=== PATIENT | male | born 1995 | race Caucasian/White ===

== ENCOUNTER 2020-05-19 06:14 | Emergency (ER) | payer OTHER ==
[~2020-05-19] VITALS: Ht 182.9 cm; Wt 112.4 kg
[2020-05-19 06:15] VITALS: BP 147/94
[2020-05-19] MEDS ORDERED: IBUP-1673 PO (06:31)
[2020-05-19] MEDS ORDERED: AMOX500C PO (06:31)
--- NOTE | 2020-05-19 06:31 | PHYS DOC ---
General Adult EDM: Chief Complaint: DENTAL PROBLEM HPI: HPI: Patient is a 24-year-old male with no reported past medical history who presents with chief complaint of left lower molar pain. Patient states the pain began 2 days ago. Denies any trauma or injury. States chewing on that side seems to make the pain worse. Denies pain opening his mouth. Denies changes to his voice. Denies sore throat. Denies any swelling or skin changes. Denies drainage into the mouth. States he recently moved to the area and has not followed up with a dentist. States he has tried mouthwash without relief. Denies fevers or vomiting. No other complaints. Review of Systems: Review of Systems: Constitutional: Denies fever or chills Eyes: Denies change in visual acuity HENT: Positive for dental pain Respiratory: Denies cough or shortness of breath Cardiovascular: Denies chest pain or edema GI: Denies abdominal pain, nausea, vomiting, bloody stools or diarrhea : Denies dysuria Musculoskeletal: Denies back pain or joint pain Integument: Denies rash Neurologic: Denies headache, focal weakness or sensory changes Endocrine: Denies polyuria or polydipsia Lymphatic: Denies swollen glands Psychiatric: Denies depression or anxiety Heart Score: Risk Factors: Risk Factors: DM, Current or recent (<one month) smoker, HTN, HLP, family history of CAD, obesity. Risk Scores: Score 0 - 3: 2.5% MACE over next 6 weeks - Discharge Home Score 4 - 6: 20.3% MACE over next 6 weeks - Admit for Clinical Observation Score 7 - 10: 72.7% MACE over next 6 weeks - Early Invasive Strategies Allergies: Allergies: Allergies Coded Allergies Type Severity Reaction Last Updated Verified No Known Drug Allergies 05/19/20 No Physical Exam: PE: Constitutional: Well developed, well nourished, no acute distress, non-toxic appearance. [] HENT: Normocephalic, atraumatic, bilateral external ears normal, oropharynx moist, no oral exudates, nose normal. Dental caries present. No apical abscess visualized. No swelling in the submental or submandibular region. Mild tenderness palpation of the left lower molar tooth. Eyes: PERRLA, EOMI, conjunctiva normal, no discharge. [] Neck: Normal range of motion, no tenderness, supple, no stridor. [] Cardiovascular:Heart rate regular rhythm, no murmur [] Lungs & Thorax: Bilateral breath sounds clear to auscultation [] Abdomen: Bowel sounds normal, soft, no tenderness, no masses, no pulsatile masses. [] Skin: Warm, dry, no erythema, no rash. [] Back: No tenderness, no CVA tenderness. [] Extremities: No tenderness, no cyanosis, no clubbing, ROM intact, no edema. [] Neurologic: Alert and oriented X 3, normal motor function, normal sensory function, no focal deficits noted. [] Psychologic: Affect normal, judgement normal, mood normal. [] EKG: EKG: [] Radiology/Procedures: Radiology/Procedures: [] Course & Med Decision Making: Course & Med Decision Making Pertinent Labs and Imaging studies reviewed. (See chart for details) [] Patient is a well-appearing 24-year-old male who presents with chief com plaint of dental pain. Vital signs unremarkable. Exam overall reassuring. Low suspicion for deep space infection. Advanced imaging will be deferred. He will be given a prescription of amoxicillin. He was encouraged to use ibuprofen at home. Instructed to follow-up with a dentist in the next 2 to 3 days. Return precautions discussed and understood. Stable for discharge home. Dragmariano Disclaimer: Leatha Disclaimer: This electronic medical record was generated, in whole or in part, using a voice recognition dictation system. Departure Departure: Impression: Primary Impression: Pain, dental Disposition: HOME/RESIDENCE PRIOR TO ADM Condition: STABLE Referrals: PCP,NO (PCP) Patient Instructions: Dental Caries Scripts Ibuprofen (IBUPROFEN) 200 Mg Tablet 600 MG PO QIDPRN PRN for PAIN, #15 TAB Prov: BEAN TOMAS DO 05/19/20 Amoxicillin (AMOXICILLIN) 500 Mg Capsule 1 CAP PO BID for infection for 10 Days, #20 CAP Prov: BEAN TOMAS DO 05/19/20 Justification of Admission: Justification of Admission: Justification of Admission Dx: N/A BEAN TOMAS DO May 19, 2020 06:31
[2020-05-19] MEDS ORDERED: HYDROcodone/APAP 5/325MG 1 TAB TABLET PO ONE (07:00)
[2020-05-19] MEDS ORDERED: AMOXICILLIN 250 MG CAPSULE PO ONE (07:00)
== END 2020-05-19 06:49 | disposition home or self-care (01) ==
LOC: ER 06:14
DX: K02.9 Dental caries, unspecified (principal); K08.89 Other specified disorders of teeth and supporting structures
CPT/HCPCS: 99283

== ENCOUNTER 2020-10-20 18:34 | Emergency (ER) | payer OTHER ==
[~2020-10-20] VITALS: Ht 182.9 cm; Wt 112.4 kg
[~2020-10-20 18:34] MED LIST: AMOX500C PO; IBUP-1673 PO
[2020-10-20 18:57] VITALS: BP 141/89
--- NOTE | 2020-10-20 20:12 | PHYS DOC ---
Past History Past Medical History: No Pertinent History (ROGELIO COSTA APRN) Alcohol Use: Occasionally (ROGELIO COSTA APRN) General Adult EDM: Chief Complaint: COUGH HPI: HPI: Patient is a 25-year-old male who presents with cough. Patient was diagnosed with Covid 4 days ago. Patient was mom, grandma, grandpa, fianc all are positive for Covid. Patient states he did have a fever a few days ago but nothing since. Patient denies shortness of breath, nausea/vomiting. Patient states that he was seen by his PCP and has been taking Tessalon Perles for his cough. Patient reports green sputum. Patient denies any other health history. (ROGELIO COSTA APRN) Review of Systems: Review of Systems: Constitutional: Denies fever or chills Eyes: Denies change in visual acuity HENT: Denies nasal congestion or sore throat Respiratory: Reports cough denies shortness of breath Cardiovascular: Denies chest pain or edema GI: Denies abdominal pain, nausea, vomiting, bloody stools or diarrhea : Denies dysuria Musculoskeletal: Denies back pain or joint pain Integument: Denies rash Neurologic: Denies headache, focal weakness or sensory changes Endocrine: Denies polyuria or polydipsia Lymphatic: Denies swollen glands Psychiatric: Denies depression or anxiety (ROGELIO COSTA APRN) Allergies: Allergies: Allergies Coded Allergies Type Severity Reaction Last Updated Verified No Known Drug Allergies 05/19/20 No (ROGELIO COSTA APRN) Physical Exam: PE: Constitutional: Well developed, well nourished, no acute distress, non-toxic appearance. [] HENT: Normocephalic, atraumatic, bilateral external ears normal, oropharynx moist, no oral exudates, nose normal. [] Eyes: PERRLA, EOMI, conjunctiva normal, no discharge. [] Neck: Normal range of motion, no tenderness, supple, no stridor. [] Cardiovascular:Heart rate regular rhythm, no murmur [] Lungs & Thorax: Bilateral breath sounds clear to auscultation [] Abdomen: Bowel sounds normal, soft, no tenderness, no masses, no pulsatile masses. [] Skin: Warm, dry, no erythema, no rash. [] Back: No tenderness, no CVA tenderness. [] Extremities: No tenderness, no cyanosis, no clubbing, ROM intact, no edema. [] Neurologic: Alert and oriented X 3, normal motor function, normal sensory function, no focal deficits noted. [] Psychologic: Affect normal, judgement normal, mood normal. [] (ROGELIO COSTA APRN) Current Patient Data: Vital Signs: Vital Signs Date Time Temp Pulse Resp B/P (MAP) Pulse Ox O2 Delivery O2 Flow Rate FiO2 10/20/20 18:57 98.4 78 17 141/89 (106) 96 Room Air (ROGELIO COSTA APRN) EKG: EKG: [] (ROGELIO COSTA APRN) Radiology/Procedures: Radiology/Procedures: []INDICATION: Reason: cough, COVID+ / Spl. Instructions: / History: COMPARISON: None. FINDINGS: Single view of chest obtained. No focal airspace consolidation. Cardiomediastinal contour unremarkable. No acute osseous abnormality. IMPRESSION: * No focal airspace consolidation or edema. Electronically signed by: Cory Duran MD (10/20/2020 8:31 PM) [id number] (ROGELIO COSTA APRN) Heart Score: Risk Factors: Risk Factors: DM, Current or recent (<one month) smoker, HTN, HLP, family history of CAD, obesity. Risk Scores: Score 0 - 3: 2.5% MACE over next 6 weeks - Discharge Home Score 4 - 6: 20.3% MACE over next 6 weeks - Admit for Clinical Observation Score 7 - 10: 72.7% MACE over next 6 weeks - Early Invasive Strategies (ROGELIO COSTA APRN) Course & Med Decision Making: Course & Med Decision Making Pertinent Labs and Imaging studies reviewed. (See chart for details) []Patient is a 25-year-old male who presents with cough. Patient was diagnosed with Covid 4 days ago. Patient was mom, grandma, grandpa, fianc all are positive for Covid. Patient states he did have a fever a few days ago but nothing since. Patient denies shortness of breath, nausea/vomiting. Patient states that he was seen by his PCP and has been taking Tessalon Perles for his cough. Patient reports green sputum. Patient denies any other health history. Chest x-ray ordered. Chest x-ray negative for any acute abnormalities. Patient is discharged to home with family. Patient told to take ibuprofen or Tylenol for discomfort. Patient to continue taking Tessalon Perles for cough. Return to emergency room with worsening symptoms or concerns otherwise follow-up with your PCP. (ROGELIO COSTA APRN) Course & Med Decision Making Did not see or evaluate patient. Agree with CONTRACT PREPARER's work-up and disposition per note. (KALI GARCIA MD) Dragon Disclaimer: Dragon Disclaimer: This electronic medical record was generated, in whole or in part, using a voice recognition dictation system. (ROGELIO COSTA APRN) Departure Departure: Impression: Primary Impression: Cough Additional Impression: COVID-19 Disposition: 01 DC HOME SELF CARE/HOMELESS Condition: STABLE Referrals: PCP,NO (PCP) Patient Instructions: Cough, Adult, [id number] Additional Instructions: You were seen in the emergency room today for cough and runny nose. Chest x-ray was negative for any acute abnormalities. Please continue to take Tylenol and ibuprofen at home for discomfort. You can continue taking Tessalon Perles for your cough that you were prescribed. Return to the emergency room with worsening symptoms or concerns. Or follow-up with your PCP. EMERGENCY DEPARTMENT GENERAL DISCHARGE INSTRUCTIONS Thank you for coming to [facility] (ED) today and trusting us with you care. We trust that you had a positivie experience in our Emergency Department. If you wish to speak to the department management, you may call the director at [phone]. YOUR FOLLOW UP INSTRUCTIONS ARE FOLLOWS: 1. Do you have a private Doctor? If you do not have a private doctor, please ask for a resource list of physicians or clinics that may be able to assist you with follow up care. 2. The Emergency Physician has interpreted your x-rays. The X-Ray specialist will also review them. If there is a change in the findings, you will be notified in 48 hours when at all possible. 3. A lab test or culture has been done, your results will be reviewed and you will be notified if you need a change in treatment. ADDITIONAL INSTRUCTIONS AND INFORMATION: 1. Your care today has been supervised by a physician who is specially trained in emergency care. Many problems require more than one evaluation for a complete diagnosis and treatment. We recommend that you schedule your follow up appointment as recommended to ensure complete treatment of you illness or injury. If you are unable to obtain follow up care and continue to have a problem, or if your condition worsens, we recommend that you return to the ED. 2. We are not able to safely determine your condition over the phone nor are we able to give sound medical advice over the phone. For these safety reasons, if you call for medical advice we will ask you to come to the ED for further evaluation. 3. If you have any questions regarding these discharge instructions please call the ED at [phone]. SAFETY INFORMATION: In the interest of safety, wellness, and injury prevention; we encourage you to wear your sealbelt, if you smoke; quite smoking, and we encourage family to use a protective helmet for bicycling and other sporting events that present an increased risk for head injury. IF YOUR SYMPTOMS WORSEN OR NEW SYMPTOMS DEVELOP, OR YOU HAVE CONCERNS ABOUT YOUR CONDITION; OR IF YOUR CONDITION WORSENS WHILE YOU ARE WAITING FOR YOUR FOLLOW UP APPOINTMENT; EITHER CONTACT YOUR PRIMARY CARE DOCTOR, THE PHYSICIAN WHOSE NAME AND NUMBER YOU WERE GIVEN, OR RETURN TO THE ED IMMEDIATELY. ROGELIO COSTA APRN Oct 20, 2020 20:11 KALI GARCIA MD Oct 21, 2020 01:59
--- NOTE | 2020-10-20 20:34 | RAD ---
INDICATION: Reason: cough, COVID+ / Spl. Instructions: / History: COMPARISON: None. FINDINGS: Single view of chest obtained. No focal airspace consolidation. Cardiomediastinal contour unremarkable. No acute osseous abnormality. IMPRESSION: * No focal airspace consolidation or edema. Electronically signed by: Cory Duran MD (10/20/2020 8:31 PM) [id number]
== END 2020-10-20 21:45 | disposition home or self-care (01) ==
LOC: ER 18:34
DX: U07.1 COVID-19 (principal); R05 Cough; R50.9 Fever, unspecified
CPT/HCPCS: 71045; 99283